=== PATIENT | male | born 1975 ===

== ENCOUNTER 2017-10-23 13:28 | Emergency (ER) | payer SELFPAY ==
[2017-10-23 13:37] VITALS: RESP 18; TEMP 98.2
[2017-10-23] MEDS ORDERED: Tetracaine 0.5% Ophth 2 ML BOTTLE OU STA (13:40)
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
[2017-10-23 14:53] VITALS: BP 132/74; PULSE 77; O2SAT 100
== END 2017-10-23 14:52 ==
LOC: MERGE 13:28 → ED 13:28
DX: T65.893A Toxic effect of other specified substances, assault, initial encounter (principal); H57.8 Other specified disorders of eye and adnexa